=== PATIENT | female | born 1955 | race Caucasian/White ===

== ENCOUNTER 2017-04-03 10:50 | Emergency (ER) | payer OTHER ==
[~2017-04-03] VITALS: Ht 162.6 cm; Wt 75.0 kg
[~2017-04-03 10:50] MED LIST: BACTDS PO; CEPH-443 PO; HYDR-762 PO
[2017-04-03 10:52] VITALS: Ht 162.6 cm; Wt 75.0 kg
--- NOTE | 2017-04-03 11:19 | ERD ---
ER Documentation Chief Complaint Date/Time DATE: 04/03/17 TIME: 11:08 Chief Complaint back pain s/p vaccuming started yesterday HPI 61-year-old female who presents emergency department for lower back pain started yesterday after using the vacuum, cleaning the house. Stated that her back pain radiates to her left lower extremity. Also added to explain full on range of motion. Denies headache, dizziness, blurred vision, neck pain, shoulder pain, chest pain , abdominal pain, nausea, vomiting, direct trauma, urinary symptoms, fever, chills, numbness or tingling sensation, loss of bowel and bladder control. No known drug allergies. Past medical history of rheumatoid arthritis, hyperlipidemia. Surgery: Denies. Medication: Tramadol, gabapentin. 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 Denies smoking, use of alcohol, use of illegal drugs. ROS All systems reviewed and are negative except as per history of present illness. Medications Home Meds Active Scripts Cyclobenzaprine Hcl* (Cyclobenzaprine Hcl*) 10 Mg Tablet, 10 MG PO Q12 Y for PAIN, #15 TAB Prov:SAVANNAH CASTRO 04/03/17 Cephalexin* (Keflex*) 500 Mg Capsule, 500 MG PO QID for 7 Days, CAP Prov:DUSTIN DELGADO MD 12/19/14 Sulfamethoxazole-Trimethoprim* (Bactrim* DS) 800-160 Mg Tab, 1 TAB PO BID for 7 Days, TAB Prov:DUSTIN DELGADO MD 12/19/14 Hydrocodone Bit-Acetaminophen* ([place]*) 10-325 Mg Tablet, 1 TAB PO Q6 Y for PAIN , #12 TAB Prov:DUSTIN DELGADO MD 12/19/14 Allergies Allergies: Coded Allergies: No Known Allergy (Unverified , 12/19/14) PMhx/Soc History of Surgery: No Anesthesia Reaction: No Hx Neurological Disorder: No Hx Respiratory Disorders: No Hx Cardiac Disorders: No Hx Psychiatric Problems: No Hx Miscellaneous Medical Probl: No Hx Alcohol Use: No Hx Substance Use: No Hx Tobacco Use: No Smoking Status: Never smoker Physical Exam Vitals Vital Signs Date Time Temp Pulse Resp B/P Pulse Ox O2 Delivery O2 Flow Rate FiO2 04/03/17 10:52 97.5 90 20 150/98 98 Physical Exam Const: [] Head: Atraumatic Eyes: Normal Conjunctiva ENT: Normal External Ears, Nose and Mouth. Neck: Full range of motion..~ No meningismus. Resp: Clear to auscultation bilaterally Cardio: Regular rate and rhythm, no murmurs Abd: Soft, non tender, non distended. Normal bowel sounds Skin: No petechiae or rashes Back: No midline or flank tenderness Ext: No cyanosis, or edema. Moves all 4 extremities. Positive straight leg test bilaterally. C-spine/T-spine/L-spine are in midline with good and full range of motion and has no swelling/bulging/deformity/discoloration/point of tenderness. No saddle anesthesia. Neur: Awake and alert. Cranial nerves II through XII are intact. Romberg test negative. Psych: Normal Mood and Affect Results 24 hrs Laboratory Tests Test 04/03/17 11:21 Urine Color YELLOW Urine Clarity CLEAR Urine pH 6.0 Urine Specific [place] 1.029 Urine Ketones TRACEmg/dL Urine Nitrite NEGATIVEmg/dL Urine Bilirubin NEGATIVEmg/dL Urine Urobilinogen 1+mg/dL Urine Leukocyte Esterase NEGATIVELeu/ul Urine Microscopic RBC 4/HPF Urine Microscopic WBC 1/HPF Urine Mucus MODERATE/HPF Urine Hemoglobin NEGATIVEmg/dL Urine Glucose NEGATIVEmg/dL Urine Total Protein 1+mg/dl Current Medications Medications (Trade) Dose Ordered Sig/Ingrid Route PRN Reason Start Time Stop Time Status Last Admin Dose Admin Ketorolac Tromethamine (Toradol) 60 mg ONCE STAT IM 04/03/17 12:28 04/03/17 12:29 DC 04/03/17 12:35 Procedures/MDM 61-year-old female who presents emergency department for lower back pain started yesterday after using the vacuum, cleaning the house. Stated that her back pain radiates to her left lower extremity. Also added to explain full on range of motion. Denies headache, dizziness, blurred vision, neck pain, shoulder pain, chest pain , abdominal pain, nausea, vomiting, direct trauma, urinary symptoms, fever, chills, numbness or tingling sensation, loss of bowel and bladder control. No known drug allergies. Past medical history of rheumatoid arthritis, hyperlipidemia. Surgery: Denies. Medication: Tramadol, gabapentin. 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 Denies smoking, use of alcohol, use of illegal drugs. Physical exam: Respirations even and unlabored. Lung sounds are clear to auscultation. Moves all 4 extremities. Positive straight leg test bilaterally. C-spine/T-spine/L-spine are in midline with good and full range of motion and has no swelling/bulging/deformity/discoloration/point of tenderness. No saddle anesthesia. Cranial nerves II through XII are intact. Romberg test negative. Disease process was explained to the patient and family member. They both verbalized understanding and agreed with the diagnostic exams, treatment, plan of care. X-ray of the lumbar spine: Degenerative change. Otherwise unremarkable images of the lumbar spine. Urinalysis: Negative. Differential diagnosis: Abdominal aortic aneurysm versus nephrolithiasis versus pyelonephritis versus fracture versus contusion versus sprain versus sciatica versus musculoskeletal spasms. Treatment: Toradol IM. Re-evaluation: Denies headache, dizziness, blurry vision, neck pain, shoulder pain, chest pain, back pain. Patient's even and unlabored. Lung sounds are clear to auscultation. C-spine/T-spine/L-spine are in midline with good and full range of motion and has no swelling/bulging/deformity/discoloration/point of tenderness. No saddle anesthesia. Cranial nerves II through XII are intact. Romberg test negative. Diagnosis: Musculoskeletal spasms, sciatica. Prescription: Flexeril. Follow-up with primary care physician in the next 24-48 hours. Come back here in the emergency department for any symptoms or any worsening of symptoms. All questions and concerns are answered. Patient verbalized understanding and agreed with the plan of care. Hemodynamically stable on discharge. Departure Diagnosis: Primary Impression: Back pain Additional Impression: Sciatica Condition: Stable Additional Instructions: Follow-up with primary care physician in the next 24-48 hours. Come back here in the emergency department for any symptoms or any worsening of symptoms. All questions and concerns are answered. Patient verbalized understanding and agreed with the plan of care. SAVANNAH CASTRO Apr 03, 2017 11:19
[2017-04-03 12:01] LABS: ADD UMIC YES; UR ASCORBIC ACID 40 mg/dL (NEGATIVE); UR BILIRUBIN (Dip) NEGATIVE (NEGATIVE); UR BLOOD (Dip) NEGATIVE (NEGATIVE); UR CLARITY CLEAR (CLEAR); UR COLOR YELLOW (YELLOW); UR GLUCOSE (Dip) NEGATIVE (NEGATIVE); UR KETONES (Dip) TRACE mg/dL (NEGATIVE); UR LEUKOCYTE ESTERASE (Dip) NEGATIVE Leu/ul (NEGATIVE); UR MUCUS MODERATE /HPF (NONE SEEN); UR NITRITE (Dip) NEGATIVE (NEGATIVE); UR RBC 4 /HPF (0-5); UR SPECIFIC GRAVITY (Dip) 1.029 (1.003-1.030); UR TOTAL PROTEIN (Dip) 1+ mg/dl (NEGATIVE); UR UROBILINOGEN (Dip) 1+ mg/dL (NEGATIVE)
--- NOTE | 2017-04-03 12:05 | RADRPT ---
PROCEDURE: XR Lumbar Spine. CLINICAL INDICATION: Back pain. TECHNIQUE: Three views. AP, lateral and cone-down lateral view of the lumbar spine were obtained. COMPARISON: No prior studies are available for comparison. FINDINGS: There is normal stature and alignment of the vertebrae. There is no fracture. There is no lytic or blastic lesion. There is loss of disc height at L5-S1. The disc height is otherwise normal. There are small osteophy alan throughout. The paravertebral soft tissues are unremarkable. IMPRESSION: 1. Degenerative change. 2. Otherwise unremarkable images of the lumbar spine. RPTAT: QQ .Hima Jackson MD, MD Date Time Electronically viewed and signed by .Hima Jackson MD, MD on 04/03/2017 12:05 .R/
[2017-04-03] MEDS ORDERED: CYCL-319 PO (12:27)
[2017-04-03] MEDS ORDERED: KETOROLAC 60 MG INJ IM STA (12:28)
== END 2017-04-03 12:40 | disposition home or self-care (01) ==
LOC: FTE 10:50
DX: M54.42 Lumbago with sciatica, left side (principal)
CPT/HCPCS: 72100; 81001; 96372; J1885; Z7502

== ENCOUNTER 2018-05-28 10:07 | Emergency (ER) | END 2018-05-28 11:54 | disposition home or self-care (01) ==